=== PATIENT | female | born 2005 | race Caucasian/White ===

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

== ENCOUNTER 2023-07-01 23:02 | Emergency (ER) | payer OTHER ==
[~2023-07-01] VITALS: Ht 147.3 cm; Wt 56.2 kg
[2023-07-01 23:40] VITALS: BP 100/63; PULSE 120; RESP 17; TEMP 99.5; O2SAT 99
[2023-07-02 00:35] VITALS: BP 100/63; PULSE 120; RESP 17; TEMP 99.5; O2SAT 99
== END 2023-07-02 00:35 | disposition home or self-care (01) ==
LOC: MED 23:02
DX: J06.9 Acute upper respiratory infection, unspecified (principal)
CPT/HCPCS: 99281

== ENCOUNTER 2023-07-15 17:27 | Emergency (ER) | payer OTHER ==
[~2023-07-15] VITALS: Ht 147.3 cm; Wt 55.3 kg
[2023-07-15 17:46] VITALS: BP 127/80; PULSE 92; RESP 16; TEMP 97.3; O2SAT 99
[2023-07-15 18:12] LABS: APPEARANCE,URINE SL CLOUDY (CLEAR); BILIRUBIN,URINE NEGATIVE (NEGATIVE); BLOOD, URINE TRACE-I (NEGATIVE); COLOR,URINE YELLOW (YELLOW); LEUKOCYTE ESTERASE ,URINE 3+ (NEGATIVE); NITRITE, URINE NEGATIVE (NEGATIVE); PH,URINE 7.5 (5.0-9.0); PROTEIN,URINE NEGATIVE (NEGATIVE); UGLUCOSE NEGATIVE (NEGATIVE); UROBILINOGEN,URINE 0.2 EU/dL (0.2 - 1)
[2023-07-15 18:18] LABS: RBC,URINE 0-5 /HPF (0-5)
[2023-07-15 18:19] LABS: BACTERIA,URINE 2+ /HPF (None Seen); MUCUS,URINE None Seen /LPF (None Seen); SQUAMOUS EPITHELIAL CELL,UR 4-10 (MOD) /LPF (0-3 (FEW))
[2023-07-15] MEDS ORDERED: PYR100 PO (19:38)
[2023-07-15] MEDS ORDERED: METR-435 PO (19:38)
[2023-07-15] MEDS ORDERED: NITR100C7 PO (19:38)
== END 2023-07-15 19:43 | disposition home or self-care (01) ==
LOC: MED 17:27
DX: N39.0 Urinary tract infection, site not specified (principal); N76.0 Acute vaginitis; B96.89 Other specified bacterial agents as the cause of diseases classified elsewhere; Z79.899 Other long term (current) drug therapy; Z79.2 Long term (current) use of antibiotics
CPT/HCPCS: 81001; 81025; 87086; 87210; 99283

== ENCOUNTER 2023-10-24 21:14 | Emergency (ER) | payer OTHER ==
[~2023-10-24] VITALS: Ht 147.3 cm; Wt 59.0 kg
[~2023-10-24 21:14] MED LIST: METR-435 PO; NITR100C7 PO; PYR100 PO
[2023-10-24 21:40] VITALS: BP 120/60; PULSE 88; RESP 16; TEMP 97.7; O2SAT 100
[2023-10-25] MEDS ORDERED: METR-435 PO (10:55)
[2023-10-25] MEDS ORDERED: NITR100C7 PO (11:01)
== END 2023-10-25 01:28 | disposition left against medical advice (07) ==
LOC: MED 21:14
DX: R10.30 Lower abdominal pain, unspecified (principal); Z53.21 Procedure and treatment not carried out due to patient leaving prior to being seen by health care provider
CPT/HCPCS: 99281

== ENCOUNTER 2023-10-25 08:15 | Emergency (ER) | payer OTHER ==
[~2023-10-25] VITALS: Ht 147.3 cm; Wt 55.8 kg
[2023-10-25 08:38] VITALS: BP 122/74; PULSE 90; RESP 18; TEMP 97; O2SAT 99
[2023-10-25] MEDS ORDERED: METR-435 PO (10:55)
[2023-10-25 10:59] LABS: APPEARANCE,URINE CLOUDY (CLEAR); BILIRUBIN,URINE NEGATIVE (NEGATIVE); BLOOD, URINE 1+ (NEGATIVE); COLOR,URINE YELLOW (YELLOW); LEUKOCYTE ESTERASE ,URINE 2+ (NEGATIVE); NITRITE, URINE NEGATIVE (NEGATIVE); PROTEIN,URINE NEGATIVE (NEGATIVE); UGLUCOSE NEGATIVE (NEGATIVE); UROBILINOGEN,URINE 0.2 EU/dL (0.2 - 1)
[2023-10-25] MEDS ORDERED: NITR100C7 PO (11:01)
[2023-10-25 11:20] VITALS: BP 122/74; PULSE 90; RESP 18; TEMP 36.11400; O2SAT 99
[2023-10-25 11:21] LABS: BACTERIA,URINE >30 (MANY) /HPF (None Seen); SQUAMOUS EPITHELIAL CELL,UR 4-10 (MOD) /LPF (0-3 (FEW)); WBC,URINE >25 (MANY) /HPF (0-5)
[2023-10-25 11:22] LABS: TRICHOMONAS,URINE Moderate /HPF (None Seen)
== END 2023-10-25 11:20 | disposition home or self-care (01) ==
LOC: MED 08:15
DX: N76.0 Acute vaginitis (principal); B96.89 Other specified bacterial agents as the cause of diseases classified elsewhere
CPT/HCPCS: 81001; 81025; 87086; 87491; 99283

== ENCOUNTER 2024-01-23 13:55 | Emergency (ER) | payer OTHER ==
[~2024-01-23] VITALS: Ht 147.3 cm; Wt 55.6 kg
[2024-01-23 14:19] VITALS: BP 114/79; PULSE 69; RESP 17; TEMP 98.1; O2SAT 99
[2024-01-23 14:46] LABS: APPEARANCE,URINE CLEAR (CLEAR); BILIRUBIN,URINE NEGATIVE (NEGATIVE); BLOOD, URINE NEGATIVE (NEGATIVE); COLOR,URINE YELLOW (YELLOW); LEUKOCYTE ESTERASE ,URINE NEGATIVE (NEGATIVE); NITRITE, URINE NEGATIVE (NEGATIVE); PROTEIN,URINE NEGATIVE (NEGATIVE); UGLUCOSE NEGATIVE (NEGATIVE)
[2024-01-23] MEDS ORDERED: METR-435 PO (16:05)
== END 2024-01-23 16:25 | disposition home or self-care (01) ==
LOC: MED 13:55
DX: N76.0 Acute vaginitis (principal); B96.89 Other specified bacterial agents as the cause of diseases classified elsewhere; Z79.899 Other long term (current) drug therapy
CPT/HCPCS: 81003; 81025; 87210; 87491; 99283